=== PATIENT | female | born 1995 | race Caucasian/White ===

== ENCOUNTER 2019-05-13 13:31 | Observation (INO) ==
[2019-05-13 14:19] LABS: Basophils % 0.2 % (0.0-0.8); Eosinophils % 0.2 % (0.00-10.9); Hematocrit 35.2 VOL% (35.7-47.0); Immature Granulocytes % 0.4 %; Immature Granulocytes Absolute 0.04 #; Lymphocytes # 1.5 10*3/uL (1.4-4.0); Lymphocytes % 15.6 % (21.3-54.2); Mean Corpuscular HGB Conc 31.3 GM/DL (32-36); Mean Corpuscular Volume 81.9 FL (87-102); Mean Platelet Volume 11.9 FL (9.6-12.0); Monocytes % 9.7 % (1.7-12.7); Neutrophils % 73.9 % (38.7-73.9); Platelet Count 152 T/CUMM (130-400); Red Cell Distribution Width 13.8 % (9.3-17.3); White Blood Count 9.6 T/CUMM (4-12)
[2019-05-13 14:28] LABS: Apearance,Urine CLEAR (Clear); Bacteria,Urine Occasional /HPF (Few); Bilirubin,Urine Negative (Negative); Blood, Urine Large mg/dL (Negative); Glucose,Urine (UA) Negative (Negative); Ketones,Urine 5 mg/dL (Negative); Nitrite,Urine Negative (Negative); Protein,Urine Negative; RBC,Urine <1 /HPF (0-4); Squamous Epithelial Cell,Urine Occasional /HPF (0-10); Urine Color Yellow (Yellow); Urine Specific Gravity 1.004 (1.001-1.035); Urine Urobilinogen < 2.0 EU/DL (0.2-1.0); WBC,Urine 22 /HPF (0-6)
[2019-05-13 14:43] LABS: Albumin 3.3 G/DL (3.4-5.0); Bilirubin,Total 0.5 MG/DL (0.2-1.0); Calcium 8.8 MG/DL (8.5-10.1); Osmolality,Calculated 268.1 MOS/KG (273-304); Total Protein 7.3 G/DL (6.4-8.3)
[2019-05-13] MEDS ORDERED: IBUPROFEN 800 MG TABLET PO STA (16:15)
[2019-05-13] MEDS ORDERED: IBUPROFEN 400 MG TABLET ONE (16:20)
[2019-05-13] MEDS ORDERED: LACTULOSE 20 GM/30 ML UDCUP PO PRN (16:41)
[2019-05-13] MEDS ORDERED: DOCUSATE SODIUM 100 MG CAPSULE PO PRN (16:41)
[2019-05-13] MEDS ORDERED: ONDANSETRON 4 MG/2 ML VIAL IV PRN (16:41)
[2019-05-13] MEDS ORDERED: LEVOFLOXACIN INJ 750 MG in PREMIX 1 EACH IV SCH (17:00)
[2019-05-13] MEDS ORDERED: metroNIDAZOLE INJ 500 MG in PREMIX 1 EACH IV SCH (18:00)
[2019-05-13] MEDS: SODIUM CHLORIDE 0.9% 1,000 ML IV SCH (18:37)
[2019-05-13] MEDS: cefTRIAXone 1,000 MG in SYRINGE 1 EACH IV SCH (18:38)
[2019-05-13 18:51] LABS: Thyroid Stimulating Hormone 1.83 uIU/ml (0.358-3.74)
[2019-05-13] MEDS: ACETAMINOPHEN 325 MG TABLET PO PRN (23:41)
[2019-05-14] MEDS: SODIUM CHLORIDE 0.9% 1,000 ML IV SCH ×3 (02:41→18:52)
[2019-05-14] MEDS: ACETAMINOPHEN 325 MG TABLET PO PRN ×3 (03:55→19:47)
[2019-05-14 06:25] LABS: Calcium 8.2 MG/DL (8.5-10.1); Osmolality,Calculated 270.8 MOS/KG (273-304)
[2019-05-14 06:36] LABS: Basophils % 0.2 % (0.0-0.8); Eosinophils % 0.3 % (0.00-10.9); Hematocrit 29.2 VOL% (35.7-47.0); Hemoglobin 9.2 GM/DL (12.0-16.0); Immature Granulocytes % 0.5 %; Immature Granulocytes Absolute 0.03 #; Lymphocytes % 15.5 % (21.3-54.2); Mean Corpuscular HGB Conc 31.5 GM/DL (32-36); Mean Corpuscular Volume 80.7 FL (87-102); Mean Platelet Volume 12.5 FL (9.6-12.0); Monocytes % 18.1 % (1.7-12.7); Neutrophils % 65.4 % (38.7-73.9); Red Blood Count 3.62 MC/CUMM (3.8-5.5); Red Cell Distribution Width 13.9 % (9.3-17.3)
[2019-05-14 06:38] LABS: White Blood Count 6.1 T/CUMM (4-12)
[2019-05-14 06:40] LABS: Platelet Count 119 T/CUMM (130-400)
[2019-05-14 08:09] LABS: Band Neutrophils 5 % (0-10); Eosinophils 1 % (0-10); Lymphocytes 16 % (20-55); Segmented Neutrophils 66 % (50-85); Total Cells Counted 100
[2019-05-14 08:10] LABS: Hypochromasia 1+
[2019-05-14 08:12] LABS: Microcytosis 1+; Platelet Estimate Adequate
[2019-05-14] MEDS: PANTOPRAZOLE 40 MG TABLET PO SCH (08:41)
[2019-05-14] MEDS: POTASSIUM CHLORIDE 20 MEQ TABLET PO PRN ×3 (08:41→22:03)
[2019-05-14] MEDS: IBUPROFEN 800 MG TABLET PO PRN ×2 (12:20→22:03)
[2019-05-14] MEDS: cefTRIAXone 1,000 MG in SYRINGE 1 EACH IV SCH (16:01)
[2019-05-15] MEDS ORDERED: ALUMINUM/MAGNES/SIMETH MAX STR 30 ML UDCUP PO PRN (00:42)
[2019-05-15 06:47] LABS: % Iron Saturation 3.1 % (18-50)
[2019-05-15] MEDS: SODIUM CHLORIDE 0.9% 1,000 ML IV SCH ×2 (09:25→17:50)
[2019-05-15] MEDS: PANTOPRAZOLE 40 MG TABLET PO SCH (09:25)
[2019-05-15] MEDS: IBUPROFEN 800 MG TABLET PO PRN (12:50)
[2019-05-15 13:02] LABS: Basophils % 0.2 % (0.0-0.8); Eosinophils # 0.1 10*3/uL (0.0-0.87); Eosinophils % 2.3 % (0.00-10.9); Hematocrit 30.9 VOL% (35.7-47.0); Hemoglobin 9.7 GM/DL (12.0-16.0); Immature Granulocytes % 0.6 %; Immature Granulocytes Absolute 0.03 #; Lymphocytes # 1.3 10*3/uL (1.4-4.0); Lymphocytes % 26.4 % (21.3-54.2); Mean Corpuscular HGB Conc 31.4 GM/DL (32-36); Mean Corpuscular Volume 80.9 FL (87-102); Mean Platelet Volume 12.7 FL (9.6-12.0); Monocytes % 12.4 % (1.7-12.7); Neutrophils % 58.1 % (38.7-73.9); Platelet Count 142 T/CUMM (130-400); Red Blood Count 3.82 MC/CUMM (3.8-5.5); Red Cell Distribution Width 14.2 % (9.3-17.3); White Blood Count 4.8 T/CUMM (4-12)
[2019-05-15 13:20] LABS: Osmolality,Calculated 271.5 MOS/KG (273-304)
[2019-05-15] MEDS: cefTRIAXone 1,000 MG in SYRINGE 1 EACH IV SCH (17:51)
[2019-05-15] MEDS: FERROUS SULFATE 325 MG TABLET PO SCH (20:30)
[2019-05-15] MEDS: ACETAMINOPHEN 325 MG TABLET PO PRN (20:45)
[2019-05-16 05:27] LABS: Basophils % 0.4 % (0.0-0.8); Eosinophils # 0.2 10*3/uL (0.0-0.87); Eosinophils % 3.1 % (0.00-10.9); Hematocrit 29.9 VOL% (35.7-47.0); Hemoglobin 9.5 GM/DL (12.0-16.0); Immature Granulocytes % 0.2 %; Immature Granulocytes Absolute 0.01 #; Lymphocytes # 1.5 10*3/uL (1.4-4.0); Lymphocytes % 29.2 % (21.3-54.2); Mean Corpuscular HGB Conc 31.8 GM/DL (32-36); Mean Corpuscular Volume 80.8 FL (87-102); Mean Platelet Volume 12.9 FL (9.6-12.0); Monocytes % 14.9 % (1.7-12.7); Neutrophils % 52.2 % (38.7-73.9); Platelet Count 146 T/CUMM (130-400); Red Cell Distribution Width 14.2 % (9.3-17.3); White Blood Count 5.1 T/CUMM (4-12)
[2019-05-16 05:33] LABS: Calcium 8.5 MG/DL (8.5-10.1); Osmolality,Calculated 272.7 MOS/KG (273-304)
[2019-05-16] MEDS: FERROUS SULFATE 325 MG TABLET PO SCH (09:07)
[2019-05-16] MEDS: PANTOPRAZOLE 40 MG TABLET PO SCH (09:07)
[2019-05-16 11:34] VITALS: BP 104/62
== END 2019-05-16 13:43 | disposition home or self-care (01) ==
LOC: N.ED 13:31 → N.EDINP 13:31 → SUATTDRO 16:53 → N.5E 18:00
PROVIDERS: ADMIT Emergency Medicine; ATTEND Family Medicine